=== PATIENT | male | born 1950 | race Caucasian/White ===

== ENCOUNTER → 2019-05-15 | Outpatient (CLI) | payer MEDICARE, BC | LOC: M.MRI 08:02 | DX: S83.241A Other tear of medial meniscus, current injury, right knee, initial encounter (principal); M17.11 Unilateral primary osteoarthritis, right knee; M71.21 Synovial cyst of popliteal space [Baker], right knee; X58.XXXA Exposure to other specified factors, initial encounter; Y93.89 Activity, other specified; Y92.89 Other specified places as the place of occurrence of the external cause; Y99.8 Other external cause status ==

== ENCOUNTER 2019-06-26 06:27 | Inpatient (IN) | payer MEDICARE, OTHER ==
[2019-06-07 08:55] LABS: URINE BILIRUBIN NEGATIVE (Negative); URINE BLOOD NEGATIVE (Negative); URINE CLARITY CLEAR; URINE COLOR YELLOW; URINE GLUCOSE-RANDOM TRACE (Negative); URINE KETONES NEGATIVE (Negative); URINE LEUKOCYTES-REFLEX NEGATIVE (Negative); URINE NITRITE-REFLEX NEGATIVE (Negative); URINE PROTEIN NEGATIVE (Negative); URINE SPECIFIC GRAVITY 1.025 (1.005-1.030); URINE UROBILINOGEN 0.2 E.U./dl (0.2-1.0)
[2019-06-07 09:03] LABS: HEMATOCRIT 40.3 % (42.0-52.0); HEMOGLOBIN 14.3 gm/dL (14.0-18.0); MCH 32.2 pg (26.0-34.0); MCHC 35.4 g/dL (28.0-37.0); MCV 90.8 fL (80.0-100.0); MPV 7.1 fl. (7.2-11.1); RBC 4.44 mil/uL (4.50-6.00); WBC 7.4 thou/uL (4.0-11.0)
[2019-06-07 09:10] LABS: PROTIME 10.5 Seconds (9.20-11.50)
[2019-06-07 09:18] LABS: ALBUMIN 3.6 g/dL (3.4-5.0); CALCIUM 9.7 mg/dL (8.5-10.1); POTASSIUM 3.6 mmol/L (3.5-5.1); TOTAL BILIRUBIN 1.3 mg/dL (<0.1-1.0); TOTAL PROTEIN 7.1 g/dL (6.4-8.2)
--- NOTE | 2019-06-07 12:58 | EKG ---
[place] [address] ELECTROCARDIOGRAM REPORT Name: EDINSON MORA Room: PRE IN [facility]#: [id number] Admission: Attend Phys: Kacy Benítez Discharge: Date of : 50 Report #: [id number] THIS REPORT FOR: //name// [facility] Test Date: 2019-06-07 Test Time: 09:07:41 Pat Name: EDINSON ZAVALACKE Department: Room: Gender: M Blend Technician: : 1950 Requested By: Dino Cobos Order Number: [id number] Reading MD: Ivan Samuel Measurements Intervals Warrior Rate: 64 P: 57 AK: 171 QRS: -33 QRSD: 108 T: 28 QT: 392 QTc: 405 Interpretive Statements Sinus rhythm Left axis deviation Abnormal R-wave progression, early transition No previous ECG available for comparison Electronically Signed On 06-07-2019 12:57:47 [employer] by Ivan Samuel [email or web address] <ELECTRONICALLY SIGNED> By: Ivan Samuel MD, FAC 06/07/19 1257 6 Ivan Samuel MD, FACC /EPI
[~2019-06-26] VITALS: Ht 185.4 cm; Wt 108.9 kg
[~2019-06-26 06:27] MED LIST: ALLERCLEAR10 MG PO; AMARYL4 MG PO; ASPIR 8181 M1 PO; CELEBREX 200 M200 M1 PO; CENTRUM SILVER1 EAC2 PO; COZAAR 50 MG TA50 MG PO; GABAPENTIN600 M1 PO; HYDROCHLOROTH12.5 M2 PO; JANUMET 50-1,01 EACH PO; LIPITOR10 MG PO; NEXIUM40 MG PO; NORVASC 2.5 MG2.5 M1 PO; TOUJEO MAX300 UNIT/1 SUBQ; TYLENOL EXTRA500 MG PO; VITAMIN D32000 UNIT PO
[2019-06-26 10:20] VITALS: BP 137/76
--- NOTE | 2019-06-26 18:22 | NUR ---
PT ARRIVED TO UNIT FROM PACU ABOUT 1525. IV PATENT, INFUSING. MINIMAL PAIN, DENIED PAIN MEDS AT THIS POINT. PT HAS GOT UP AND WALKED TO BATHROOM WITH GAITBELT AND WALKER, UP WITH 1 ASSIST. DENIED NAUSEA, TOLERATED DIET. DRESSING C/D/I. DRAIN PATENT. LJ ON LEFT LEG IN PLACE. POLAR PACK IN PLACE. CALL LIGHT WITHIN REACH. FALL PRECAUTIONS IN PLACE. IN ROOM. WILL CONTINUE TO [facility].
[2019-06-26 18:40] VITALS: BP 114/69
[2019-06-26 21:30] VITALS: BP 128/69
[2019-06-27] VITALS (7 sets, daily range): BP systolic 123–141; BP diastolic 66–79
[2019-06-27 05:49] LABS: HEMOGLOBIN 12.8 gm/dL (14.0-18.0)
--- NOTE | 2019-06-27 07:09 | NUR ---
PATIENT HAS SLEPT WELL THROUGHOUT MOST OF THE NIGHT. VSS ON 3L 02 VIA NASAL CANNULA AND CAPNO. PAIN HAS BEEN WELL CONTROLLED. MEDICATIONS GIVEN ORDERED AND CHARTED. DRESSING TO RIGHT KNEE IS C/D/I, AND LJ KEIRA, POLAR CARE AND SCD'S IN PLACE. HEMOVAC IN PLACE WITH MODERATE AMOUNT OF DRAINAGE. PATIENT IS UP WITH ASSIST X 1 TO THE BATHROOM WITH GAITBELT AND WALKER AND DOING WELL. IV IN LEFT HAND-1/2 NS @ 75ML/HR. PATIENT TOLERATED CPM WELL. PATIENT INSTRUCTED TO USE CALL LIGHT WHEN NEEDING ASSISTANCE. HOURLY ROUNDS MADE. WILL CONTINUE WITH PLAN OF CARE AND NURSING TO MONITOR.
--- NOTE | 2019-06-27 09:27 | NUR ---
RECIEVED O.T. EVAL AND TX ORDERS. WILL DEFER TO P.T. AT THIS TIME. PLEASE ORDER FURTHER O.T. SERVICES IF NEEDED.
--- NOTE | 2019-06-27 10:49 | OP ---
[facility] [address] [place] [address] OPERATIVE REPORT Name: EDINSON MORA Room: [address] IN [facility].#: [id number] Admission: 06/26/19 Attend Phys: Kacy Benítez Discharge: Date of : 50 Report #: [id number] THIS REPORT FOR: //name// CC: Keith Velasquez DATE OF SERVICE: 06/26/2019 PREOPERATIVE DIAGNOSIS: Right knee osteoarthritis. POSTOPERATIVE DIAGNOSIS: Right knee osteoarthritis. PROCEDURE PERFORMED: Right total knee arthroplasty. SURGEON: Dino Cobos II, D.O. FOOD SAFETY OFFICER: RAMON Meier. ANESTHESIA: General endotracheal. ESTIMATED BLOOD LOSS: 50 mL. ANTIBIOTICS: Ancef preoperatively. DRAINS: Medium Hemovac. COMPLICATIONS: None. CONDITION: The patient is stable to recovery room. IMPLANTS: Listed in the operative record and progress note. BRIEF HISTORY: The patient was seen in the preoperative area. Preoperative H and P was performed. Site was marked, questions were answered. Risks and benefits were discussed with the patient in detail about the surgery. The patient wished to proceed, assuming all risks. DESCRIPTION OF PROCEDURE: The patient was taken to the operative suite and placed supine on the operating table, given appropriate anesthesia. A well-padded tourniquet applied to the upper thigh, which was inflated to 300 mmHg after gravity exsanguination. The operative knee was sterilely prepped and draped. Surgery began by midline incision. This was carried down to the subcutaneous tissues. A medial parapatellar arthrotomy was performed and carried down to bone. Patella was then everted and excess soft tissue removed from around the femur. Femoral cutting block was then applied, checked with [facility] [address], [place] [id number] OPERATIVE REPORT Name: EDINSON MORA Room: [address] IN [facility].#: [id number] Admission: 06/26/19 Attend Phys: Kacy Benítez Discharge: Date of : 50 Report #: [id number] drop rylee for rotational alignment, pinned in appropriate position, and appropriate cuts were made. A 4-in-1 cutting block was then applied, checked for rotational alignment, pinned in appropriate position, and appropriate cuts were made. The tibia was then exposed. Excess meniscus was removed. Retractor was placed along the collateral ligaments. The tibial cutting block was then applied, pinned in appropriate position, checked with a drop rylee of rotational alignment and slope, and appropriate cut was made. The tibial bone was removed. Tibial base plate was then applied, checked for rotational alignment with the drop rylee and pinned in appropriate position. Femur was then applied and box cut was reamed. This was then trialed with appropriate spacer, which showed excellent fit and fill and excellent stability of the knee through all range of motion. The patella was then reamed in appropriate fashion and sized to appropriate size. Three peg holes were drilled and it was then trialed and showed to have excellent flexion, extension, and ____ groove. These trials were then removed. The tibia was punched in appropriate fashion. Bone ends were cleansed with Pulsavac irrigation and cement was mixed and applied to final implants. These were then malleted into position and held the knee in extension and compressed to allow cement to cure. After it cured, excess was removed using a [place] and osteotome. Wound was then copiously irrigated and the final spacer was malleted into position. Tourniquet was deflated. Hemostasis was obtained with electrocautery. Pain cocktail was injected. PRP gel was sprayed throughout the internal aspects of the knee. Medium Hemovac drain was applied. Capsule was closed with #2 FiberWire and #1 Vicryl in [id number]-qm-maggm fashion. Skin was closed with 2-0 Vicryl and running 3-0 Monocryl. Dermabond and sterile dressing applied. Robin wrap and PolarCare applied. The patient was transported to recovery room in stable condition. Counts were correct throughout the procedure. <ELECTRONICALLY SIGNED> By: Dino Cobos II, DO 06/27/19 1049 [id number] Cobos II, DO /nt
[2019-06-27] MEDS ORDERED: XARELTO10 M1 PO (12:05)
[2019-06-27] MEDS ORDERED: COLACE100 MG PO (12:05)
[2019-06-27] MEDS ORDERED: NORCO 5-325 TA1 EAC2 PO (12:05)
--- NOTE | 2019-06-27 15:04 | NUR ---
PATIENT DISCHARGED FROM UNIT AT 1445. ALERT AND ORIENTED X 4. VITAL SIGNS STABLE ON ROOM AIR. IV DISCONTINUED. PAIN BEING MANAGED WITH PO MEDICATION. DENIES NAUSEA. HEMOVAC DISCONTINUED. DISCHARGE INSTRUCTIONS, MEDICATION INFROMATION, AND SCRIPTS GIVEN TO DEVENDR[facility]. LEFT WITH ALL BELONGINGS. PATIENT LEFT WITH VIA CAR.
--- NOTE | 2019-06-27 18:51 | NUR ---
CM VISITED WITH PT.AND . WILL BE WITH HIM AT HOME AND WILL ASSIST NEEDED. HE HAS A FWW. HE IS NORMALLY INDEPENDENT. CM CALLED IN PRESCRIPTIO FOR [employer]AR[employer] WRITTEN. COPAY WAS $123. INFORMED PT. HE SAID MOST OF THAT IS DEDUCTIBLE. HE WILL PAY IT. HE WOULD LIKE TO USE [facility] AT DISCHARGE. HE KNOWS SOMEONE THAT WORKS FOR [facility]. CM FAXED REFERRLA TO [facility]. THEY WILL CALL HIM IN AM TO SET UP APPTS. PT.READY FOR DISCHARGE.
== END 2019-06-27 14:45 | disposition home health service (06) | DRG 470 ==
LOC: M.PRE 06:27 → M.TBA 10:00 → M.ORTHSURG 10:00 → M.PRE 10:59 → M.ORTHSURG 15:26
PROVIDERS: Orthopaedic Surgery; ADMIT Internal Medicine
PROC: 0SRC0J9 Replacement of Right Knee Joint with Synthetic Substitute, Cemented, Open Approach (ICD-10-PCS; principal; 2019-06-26)
DX: M17.11 Unilateral primary osteoarthritis, right knee (principal); E11.9 Type 2 diabetes mellitus without complications; K21.9 Gastro-esophageal reflux disease without esophagitis; E78.5 Hyperlipidemia, unspecified; I10 Essential (primary) hypertension; Z72.89 Other problems related to lifestyle; Z79.899 Other long term (current) drug therapy; Z79.4 Long term (current) use of insulin; Z79.82 Long term (current) use of aspirin; Z98.49 Cataract extraction status, unspecified eye; Z82.49 Family history of ischemic heart disease and other diseases of the circulatory system